=== PATIENT | female | born 2000 | race African-American/Black ===

== ENCOUNTER 2024-01-03 03:23 | Emergency (ER) | payer SELFPAY ==
[~2024-01-03] VITALS: Ht 180.3 cm; Wt 150.0 kg
[~2024-01-03 03:23] MED LIST: AMOXICILLIN 50500 MG PO; ELIMITE TOP; PREDNISONE20 MG PO; PROAIR HFA0.09 MG/AC IH; PROVENTIL0.09 MG/A1 IH; VENTOLIN0.09 MG IH; ZITHROMAX Z PA250 MG PO
[2024-01-03 03:28] VITALS: BP 125/79; TEMP 98.7
[2024-01-03 04:30] VITALS: PULSE 89
== END 2024-01-03 04:30 | disposition home or self-care (01) ==
LOC: COL.ER 03:23
DX: S51.812A Laceration without foreign body of left forearm, initial encounter (principal); E66.9 Obesity, unspecified; F17.210 Nicotine dependence, cigarettes, uncomplicated; F17.290 Nicotine dependence, other tobacco product, uncomplicated; Z68.42 Body mass index [BMI] 45.0-49.9, adult; W22.8XXA Striking against or struck by other objects, initial encounter

== ENCOUNTER 2024-02-06 11:03 | Emergency (ER) | payer SELFPAY ==
[~2024-02-06] VITALS: Ht 180.3 cm; Wt 145.5 kg
[2024-02-06] MEDS ORDERED: dexAMETHasone 4 MG TAB PO ONE (11:30)
[2024-02-06] MEDS ORDERED: diphenhydrAMINE 25 MG CAP PO ONE (11:30)
[2024-02-06] MEDS ORDERED: Famotidine 20 MG TAB PO ONE (11:30)
[2024-02-06] MEDS ORDERED: PEPCID 20MG TAB20 MG PO (12:35)
[2024-02-06 12:38] VITALS: BP 128/94; PULSE 83; TEMP 98.4
== END 2024-02-06 12:38 | disposition home or self-care (01) ==
LOC: COL.ER 11:03
DX: T78.40XA Allergy, unspecified, initial encounter (principal); F17.210 Nicotine dependence, cigarettes, uncomplicated; F17.290 Nicotine dependence, other tobacco product, uncomplicated
CPT/HCPCS: J8540